=== PATIENT | male | born 1990 | race Caucasian/White ===

== ENCOUNTER 2017-08-17 20:32 | Inpatient (IN) | payer OTHER ==
[~2017-08-17] VITALS: Ht 182.8 cm; Wt 63.3 kg
[~2017-08-17 20:32] MED LIST: ATARAX,VISTARIL50 MG PO; DICYCLOMINE HCL20 MG PO; ONDANSETRON HYDR4 M1 PO; ROBAXIN750 MG PO; SINEMET 25-100M1 TAB PO
[2017-08-17 20:36] VITALS: BP 153/104
[2017-08-17 20:55] LABS: BASO % 0.2 % (0.0-1.0); EOS # 0.2 10*3/uL (0.0-0.4); EOS % 1.8 % (1.0-4.0); HEMATOCRIT 44.9 % (42.0-52.0); HEMOGLOBIN 15.3 g/dl (14.0-18.0); LYMPH # 1.8 10*3/uL (1.3-4.4); LYMPH % 21.1 % (27.0-41.0); MEAN CELL VOLUME 85.7 fl (80.0-94.0); MEAN CORPUSCULAR HGB 29.2 pg (27.0-31.0); MEAN CORPUSCULAR HGB CONC 34.1 g/dl (33.0-37.0); MEAN PLATELET VOLUME 9.8 fl (9.6-12.3); MONO # 0.7 10*3/uL (0.1-1.0); MONO % 8.5 % (3.0-9.0); NEUT # 5.7 10*3/uL (2.3-7.9); PLATELET COUNT AUTOMATED 203 10*3/uL (130-400); RED BLOOD COUNT 5.24 10*6/uL (4.50-5.90); RED CELL DISTRI WIDTH 12.4 % (0-14.5); WHITE BLOOD COUNT 8.4 10*3/uL (4.8-10.8)
[2017-08-17 21:11] LABS: ALBUMIN 3.9 gm/dl (3.1-4.5); ALKALINE PHOSPHATASE 143 U/L (45-117); BUN 13 mg/dl (7-24); CHLORIDE 99 mmol/L (98-107); CREATININE 1.01 mg/dL (0.70-1.30); SGOT/AST 34 IU/L (3-35); SGPT/ALT 59 U/L (12-78); SODIUM 138 mmol/L (136-145); TOTAL PROTEIN 8.1 gm/dL (6.4-8.2)
[2017-08-17 21:18] LABS: ACETAMINOPHEN (TYLENOL) < 2.0 ug/ml (10-30); ETHYL ALCOHOL < 3.0 mg/dl (<3)
[2017-08-17 21:27] LABS: BILIRUBIN 1+ (NEGATIVE); BLOOD NEGATIVE (NEGATIVE); CLARITY CLEAR (CLEAR); COLOR YELLOW (YELLOW); GLUCOSE NEGATIVE (NEGATIVE); KETONE TRACE (NEGATIVE); LEUKO ESTERASE NEGATIVE (NEGATIVE); NITRITE NEGATIVE (NEGATIVE); SPECIFIC GRAVITY 1.025 (1.005-1.030)
[2017-08-17 21:35] LABS: BACTERIA TRACE; EPITHELIAL CELLS 0-2; MUCOUS 2+
[2017-08-17 21:37] LABS: URINE AMPHETAMINES < 1000 (1000ng/ml); URINE BARBITURATES < 200 (200ng/ml); URINE BENZODIAZEPINES < 200 (200ng/ml); URINE CANNABINOIDS (THC) < 50 (50ng/ml); URINE COCAINE > 300 (300ng/ml); URINE METHADONE < 300 (300ng/ml); URINE OPIATES > 300 (300ng/ml)
[2017-08-17 21:38] LABS: URINE PHENCYCLIDINE < 25 (25ng/ml)
--- NOTE | 2017-08-17 21:49 | NUR ---
CALLED TO RECEIVE REPORT NURSE TO CALL BACK.
[2017-08-17 22:07] VITALS: BP 138/71
[2017-08-17 22:15] VITALS: BP 141/74
--- NOTE | 2017-08-17 22:15 | NUR ---
A 27, admitted to , under the services of CONTRERAS Richard DO with a diagnosis of ABDOMINAL CRAMPING, HEROIN ABUSE, ANXIETY. Chief complaint is SUBSTANCE ABUSE WITHDRAWAL. Patient arrived AMBULATORY from ER. Initial assessment completed. Vital signs taken and recorded. CONTRERAS RICHARD DO notified of admission to the unit. Orders received. See assessment for past medical history, medications and allergies. Patient and/or family oriented to unit. [facility] visitation policy reviewed. Clothing/patient valuable form completed. AMANDA SANDOVAL
[2017-08-17] MEDS ORDERED: GABAPENTIN800 MG PO (22:39)
--- NOTE | 2017-08-17 23:00 | NUR ---
PT C/O MUSCLE ACHES, BACK PAIN, ANXIETY, AND RESTLESS LEGS. ROBAXIN, IBUPROFEN, VISTARIL, AND REQUIP ADMINISTERED PO AT THIS TIME. PT REFUSING SUBUTEX AT THIS TIME. HE STATES HE IS AFRAID THAT HE WILL GO INTO WORSE WITHDRAWAL DUE TO HAVING TAKEN CARFENTANYL PRIOR TO ADMISSION. PT STATES THAT HE WAS TOLD BY ANOTHER HEALTH CARE FACILITY THAT HIS WITHDRAWAL SYMPTOMS WOULD WORSEN BY TAKING SUBUTEX. PT HAD BROUGHT HIS GABAPENTIN FROM HOME. MEDICATION COUNTED AND SENT TO PHARMACY FOR STORAGE. WILL MONITOR EFFECTIVENESS OF PRNS, CALL LIGHT IN REACH.
[2017-08-18] VITALS: BP 90/78
--- NOTE | 2017-08-18 | NUR ---
ROBAXIN, REQUIP, IBUPROFEN, AND VISTARIL EFFECTIVE PER PT. PT RESTING IN BED, CALL LIGHT IN REACH.
[2017-08-18] MEDS ORDERED: OMEPRAZOLE D/R20 MG PO (00:12)
--- NOTE | 2017-08-18 01:26 | NUR ---
24 HR chart check completed.
--- NOTE | 2017-08-18 02:12 | NUR ---
DR. RYAN MADE AWARE THAT PT REFUSED TO TAKE SUBUTEX. PHYSICIAN STATES THAT HE WILL LET DAYLIGHT STAFF AWARE. NO NEW ORDERS AT THIS TIME.
[2017-08-18 04:00] VITALS: BP 123/71
--- NOTE | 2017-08-18 05:18 | NUR ---
PT REFUSED SCHEDULED SUBUTEX AT THIS TIME. ATTEMPTS X 3 MADE, INEFFECTIVE. HE STATES THAT HE DOES NOT FEEL THAT HE NEEDS IT AND THAT THE PRN MEDICATIONS ARE TREATING HIS SYMPTOMS AT THIS TIME. NO S/S OF DISTRESS, LYING IN BED, CALL LIGHT IN REACH.
--- NOTE | 2017-08-18 07:50 | NUR ---
Shift chart check completed.
[2017-08-18 08:00] VITALS: BP 123/74
[2017-08-18] MEDS ORDERED: FLUOXETINE HCL20 M2 PO (09:28)
[2017-08-18] MEDS ORDERED: BUPRENORPHINE HY8 MG SL (09:29)
[2017-08-18] MEDS ORDERED: BUPRENORPHINE HY2 MG SL (09:31)
--- NOTE | 2017-08-18 09:33 | NUR ---
VERFIED HOME MEDICATIONS WITH PATIENTS PHARMACY. PHYSICIAN WAS NOTIFIED.
--- NOTE | 2017-08-18 10:23 | NUR ---
PRN ROBAXIN WAS GIVEN FOR MUSCLE ACHES AND SPASMS AND PRN VISTARIL WAS GIVEN FOR C/O ANXIETY, PATIENTS STATES THAT HE TAKES GABAPENTIN FOR ANXIETY. WILL MONITOR.
--- NOTE | 2017-08-18 11:12 | NUR ---
PRN SENNOKOT GIVEN PER PATIENT REQUEST FOR CONSTIPATION AND PRN MOTRIN GIVEN FOR C/O HEADACHES. WILL MONIOTOR.
--- NOTE | 2017-08-18 11:15 | NUR ---
PRN ROBAXIN EFFECTIVE, PATIENT HAS NO C/O MUSCLE SPASMS, VISTARIL IS EFFECTIVE, PATIENT IS NO AGITATED OR ANXIOUS. MOTRIN EFFECTIVE FOR PATIENTS HEADACHE, SAID PAIN HAS RESOLVED.
[2017-08-18 12:00] VITALS: BP 125/63
--- NOTE | 2017-08-18 14:25 | NUR ---
PRN REQUIP GIVEN FOR WRESTLESS LEGS, CATAPRESS GIVEN FOR C/O SWEATS AND ANXIETY.WILL MONITOR.
--- NOTE | 2017-08-18 14:27 | NUR ---
PRN ZOFRAN GIVEN FOR C/O OF NAUSEA. WILL MONITOR PATIENTS RESPONSE.
--- NOTE | 2017-08-18 15:15 | NUR ---
PRN ZOFRAN EFFECTIVE. PATIENT HAS NO C/O OF NAUSEA OR VOMITING. REQUIP EFFECTIVE, NO C/O OF WRESTLESS LEGS OR SPASMS, AND CATAPRESS EFFECTIVE. PATIENT STATES HE IS "FINE." NO SIGNS OR SYMPTOMS OF ANXIETY, WRESTLESSNESS, DIAPHORISIS. PATIENT RESTING COMFORTABLY AND ALL NEEDS ARE MET.
[2017-08-18 16:00] VITALS: BP 129/61
--- NOTE | 2017-08-18 16:56 | NUR ---
PRN SENOKOT NOT EFFECTIVE AT THIS TIME, WILL MONITOR.
[2017-08-18 20:00] VITALS: BP 113/76
--- NOTE | 2017-08-18 20:21 | NUR ---
PATIENT IS SITTING UP IN BED. PATIENT DENIES ANY S&S OF DT AT THIS TIME. PATIENT LEGS ARE FEELING SLIGHTLY RESTLESS, BUT DIDN'T REQUEST MEDICATIONS AT THIS TIME. PATIENT WAS PLEASANT AND COOPERATIVE UPON ASSESSMENT. CALL LIGHT IS WITHIN REACH.
--- NOTE | 2017-08-18 21:15 | NUR ---
PATIENT WAS GIVEN CATAPRES, ROBAXIN AND TRAZODONE PER PATIENT REQUEST FOR RESTLESSNESS. WILL CONTINUE TO MONITOR AND REASSESS PATIENT
[2017-08-19] VITALS: BP 116/72
--- NOTE | 2017-08-19 00:55 | NUR ---
PATIENT IS RESTING COMFORTABLY IN BED. TRAZODONE PER PT REQUEST HAS BEEN EFFECTIVE AND PATIENT HAS NO FURTHER REQUESTS AT THIS TIME. PT WAS NOTIFIED THAT FAMILY MEMBER HAS CALLED AND PLANS TO COME VISIT IN THE MORNING. CALL LIGHT IS WITHIN REACH. SEE SHIFT ASSESSMENT.
[2017-08-19 01:25] VITALS: BP 153/70
--- NOTE | 2017-08-19 05:50 | NUR ---
PATIENT IS RESTING IN BED. PT REPORTS BEIN ABLE TO SLEEP THROUGHOUT THE NIGHT WITHOUT ANY COMPLICATIONS. PATIENT DENIES ANY PAIN AT THIS TIME BUT DOES HAVE DISCOMFORT IN THEIR LEGS. PATIENT WAS GIVEN ROBAXIN AND REQUIP FOR RESTLESSNESS. WILL CONTINUE TO MONITOR AND REASSESS.
--- NOTE | 2017-08-19 06:25 | NUR ---
PATIENT VERBALIZES THAT MEDICATIONS HAVE BEEN EFFECTIVE AND THAT THE DISCOMFORT HAS SUBSIDED, WILL CONTINUE TO MONITOR PATIENT. PATIENT HAS NO FURTHER REQUESTS AT THIS TIME.
--- NOTE | 2017-08-19 07:50 | NUR ---
Shift chart check completed.
[2017-08-19 08:00] VITALS: BP 114/70
[2017-08-19 12:00] VITALS: BP 120/68
--- NOTE | 2017-08-19 13:00 | NUR ---
PRN ROBAXIN WAS GIVEN FOR PATIENT C/O MUSCLE SPAMS AND PRN SENNOKOT WAS GIVEN FOR C/O CONSTIPATION. WILL MONITOR.
--- NOTE | 2017-08-19 13:05 | NUR ---
PRN VISTARIL WAS GIVEN FOR PATIENT C/O ANXIETY AND PRN ZOFRAN WAS GIVEN FOR C/O NAUSEA. WILL MONITOR.
--- NOTE | 2017-08-19 14:00 | NUR ---
PRN ROBAXIN EFFECTIVE, NO C/O MUSCLE SPASMS, PRN SENNOKOT EFFECTIVE, PATIENT HAD REGULAR BOWEL MOVEMENT, PRN VISTARIL WAS EFFECTIVE FOR ANXIETY, AND PRN ZOFRAN WAS EFFECTIVE FOR PATIENTS C/O NAUSEA AND UPSET STOMACH. PATIENT IS COMFORTABLE AND SATISFIED.
--- NOTE | 2017-08-19 15:45 | NUR ---
PATIENTS GRANDMOTHER WAS IN TO VISIT PORFIRIO THIS AFTERNOON AND STATED THAT SHE IS CONCERNED THAT HER GRANDSON IS DEPRESSED. SHE IS MOST CONCERNED BECAUSE HE STATED TO HER "I HAVE NOTHING TO LIVE FOR." SHE IS CONCERNED ON HOW TO HANDLE THE SITUATION BECAUSE SHE DOES NOT WANT HIM TO GET UPSET WITH HER AND THINK HE CAN NO LONGER TRUST HER. PATIENT RESIDES IN HIS GRANDPARENTS HOUSE. WILL FOLLOW UP WITH PATIENT.
[2017-08-19 16:00] VITALS: BP 101/71
--- NOTE | 2017-08-19 16:47 | NUR ---
SPOKE WITH PORFIRIO ABOUT HIS GRANDMOTHERS CONCERN OF "HAVING NOTHING TO LIVE FOR." I ASKED HIM IF HE HAS ANY THOUGHTS ABOUT HURTING HIMSELF AND HE SAID "NO." "I DID YEARS AGO THE FIRST TIME I DETOXED, BUT NOT NOW." "I FEEL DEPRESSED, BUT I'M NOT THINKING ABOUT HURTING MYSELF." PHYSICIAN NOTIFIED AND STAFF IS TO CONTINUALLY ASSESS FOR SUICIDAL IDEATION, IF SO THE PATIENT WOULD HAVE TO BE PINK SLIPPED. WILL PASS IT ON DURING NURSING REPORT AND SUPERVISORS.
[2017-08-19 20:00] VITALS: BP 122/53
[2017-08-20] VITALS: BP 123/76
--- NOTE | 2017-08-20 04:08 | NUR ---
Medications received earlier effective to decrease withdrawal symptoms and allow to rest quietly. Denied any thoughts of suicide earlier. Resp easy and regular. Will continue to closely monitor.
--- NOTE | 2017-08-20 06:17 | NUR ---
Refused morning labs. Dr. Saba aware.
--- NOTE | 2017-08-20 06:40 | NUR ---
Denies any thoughts of suicide or harming self. States, I feel okay, just cold and would like to sleep longer. Will continue to closely monitor.
[2017-08-20 08:00] VITALS: BP 136/80
--- NOTE | 2017-08-20 09:20 | NUR ---
Patient reports the following symptoms of withdrawal: body aches, restlessness, & anxiety. Patient given scheduled/PRN medication to control withdrawal symptoms. Close observation will be maintained.
--- NOTE | 2017-08-20 10:15 | NUR ---
PATIENT STATES THAT REQUIP AND ROBAXIN WERE EFFECTIVE.
[2017-08-20 12:00] VITALS: BP 144/86
[2017-08-20] MEDS ORDERED: ZOFRAN 4 MG ED2 TAB PO (14:06)
[2017-08-20] MEDS ORDERED: METHOCARBAMOL750 M1 PO (14:06)
[2017-08-20] MEDS ORDERED: ATARAX,VISTARIL50 MG PO (14:06)
[2017-08-20] MEDS ORDERED: ROPINIROLE HYD0.5 MG PO (14:06)
--- NOTE | 2017-08-20 15:13 | NUR ---
Discharge instructions reviewed with patient/family. Patient receptive and verbalizes understanding. Follow-up care arranged,patient stated he will find a family physician and follow up for continued care and management of antidepression medications. Patient will also continue with counseling treatment for drug addiction. Written instructions given to patient. Patient ambulated off unit and left with his grandparents. BRYCE MENDEZ
== END 2017-08-20 15:13 | disposition home or self-care (01) | DRG 897 ==
LOC: ED 20:32 → 5E 21:27 → EDHOLD 21:27 → 5E 21:39
PROVIDERS: Student in an Organized Health Care Education/Training Program; ADMIT Internal Medicine
DX: F11.23 Opioid dependence with withdrawal (principal); F33.9 Major depressive disorder, recurrent, unspecified; E66.3 Overweight; R03.0 Elevated blood-pressure reading, without diagnosis of hypertension; M54.5 Low back pain; G25.81 Restless legs syndrome; F41.1 Generalized anxiety disorder; F14.10 Cocaine abuse, uncomplicated; Z53.29 Procedure and treatment not carried out because of patient's decision for other reasons; Z87.891 Personal history of nicotine dependence; Z79.899 Other long term (current) drug therapy; Z84.89 Family history of other specified conditions; Z68.26 Body mass index [BMI] 26.0-26.9, adult

== ENCOUNTER 2017-08-23 19:16 | Inpatient (IN) | payer OTHER ==
[~2017-08-23] VITALS: Ht 193 cm; Wt 97.0 kg
--- NOTE | ~2017-08-23 | CON ---
[place], [place] REPORT OF CONSULTATION [id number] #[facility] [id number] ROOM: 515 DOCTOR: ABELARDO ALVAREZ ED.D (VANIA) BIRTHDATE: [birth year] DOS: 08/24/2017 HISTORY OF PRESENT ILLNESS: The patient is a 27-year-old male referred by the hospitalist for evaluation after there was some suspicion that he may be suicidal. At the present time, he is involved in the [facility] here at [facility] and is on the 5th floor. The patient states he is single and has no children. 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 He does not have a family physician. PAST MEDICAL HISTORY: Pertinent for heroin addiction and cocaine abuse. He denies any alcohol consumption whatsoever. In addition to his addiction, he does have a history of depression and GERD. MEDICATIONS: Include fluoxetine, gabapentin, Atarax, omeprazole and Zofran. This patient states his drug of choice is heroin. He denies any suicidal ideation or plan at this time. He states he is depressed because of the fact he recently relapsed, but he states he is not going to do anything to harm himself. He does not appear to be having any active hallucinations or delusional thoughts. His insight, judgment and concentration are fair. DIAGNOSES: 1. Heroin addiction. 2. Major depressive disorder. RECOMMENDATIONS: 1. The patient should follow up outpatient at drug and alcohol rehabilitation once he is discharged from the hospital. 2. The patient denies any suicidal ideation or plan, so no further psychological intervention is needed at this time. Thank you very much for this consult. ABELARDO ALVAREZ ED.D CM:CONSTR:REPORT OF CONSULTATION [id number] 08/25/17 0601 interface
[~2017-08-23 19:16] MED LIST changes: +BUPRENORPHINE HY2 MG SL; +BUPRENORPHINE HY8 MG SL; +FLUOXETINE HCL20 M2 PO; +GABAPENTIN800 MG PO; +METHOCARBAMOL750 M1 PO; +OMEPRAZOLE D/R20 MG PO; +ROPINIROLE HYD0.5 MG PO; +ZOFRAN 4 MG ED2 TAB PO
[2017-08-23 19:27] VITALS: BP 140/86
[2017-08-23 20:00] VITALS: BP 135/73
[2017-08-23 20:03] LABS: BASO % 0.2 % (0.0-1.0); EOS # 0.1 10*3/uL (0.0-0.4); EOS % 1.1 % (1.0-4.0); HEMATOCRIT 45.3 % (42.0-52.0); HEMOGLOBIN 15.4 g/dl (14.0-18.0); LYMPH # 2.2 10*3/uL (1.3-4.4); LYMPH % 23.2 % (27.0-41.0); MEAN CELL VOLUME 85.2 fl (80.0-94.0); MEAN CORPUSCULAR HGB 28.9 pg (27.0-31.0); MEAN PLATELET VOLUME 9.9 fl (9.6-12.3); MONO # 0.6 10*3/uL (0.1-1.0); MONO % 6.2 % (3.0-9.0); NEUT # 6.6 10*3/uL (2.3-7.9); NEUT % 68.9 % (47.0-73.0); PLATELET COUNT AUTOMATED 267 10*3/uL (130-400); RED BLOOD COUNT 5.32 10*6/uL (4.50-5.90); RED CELL DISTRI WIDTH 12.2 % (0-14.5); WHITE BLOOD COUNT 9.7 10*3/uL (4.8-10.8)
[2017-08-23 20:06] VITALS: BP 108/66
[2017-08-23 20:07] LABS: URINE AMPHETAMINES < 1000 (1000ng/ml); URINE BARBITURATES < 200 (200ng/ml); URINE BENZODIAZEPINES < 200 (200ng/ml); URINE CANNABINOIDS (THC) < 50 (50ng/ml); URINE COCAINE > 300 (300ng/ml); URINE METHADONE < 300 (300ng/ml); URINE OPIATES > 300 (300ng/ml)
[2017-08-23 20:08] LABS: URINE PHENCYCLIDINE < 25 (25ng/ml)
[2017-08-23 20:19] LABS: ALBUMIN 4.1 gm/dl (3.1-4.5); ALKALINE PHOSPHATASE 160 U/L (45-117); BUN 13 mg/dl (7-24); CHLORIDE 101 mmol/L (98-107); CREATININE 1.12 mg/dL (0.70-1.30); POTASSIUM 3.7 mmol/L (3.5-5.1); SGOT/AST 60 IU/L (3-35); SGPT/ALT 149 U/L (12-78); SODIUM 137 mmol/L (136-145); TOTAL PROTEIN 8.5 gm/dL (6.4-8.2)
[2017-08-23 20:23] LABS: ACETAMINOPHEN (TYLENOL) < 2.0 ug/ml (10-30); ETHYL ALCOHOL < 3.0 mg/dl (<3)
[2017-08-23 20:30] VITALS: BP 135/73
--- NOTE | 2017-08-23 20:30 | NUR ---
Time: 2029 A 27 year old MALE admitted to 5E under services of CONTRERAS RICHARD DO. Pt. arrived via wheel chair from ER. Chief complaint: [facility] VISION FOR HEROIN WITHDRAWAL. LICO GUARDADO
--- NOTE | 2017-08-23 20:53 | NUR ---
Called and notified Dr. Juan Ziegler regarding patient admitted to floor and that the medication reconciliation was updated and verifed with the patient. Patient knew his medication,the dosages and why he was taking them.
--- NOTE | 2017-08-23 23:07 | NUR ---
Medicated with Trazodone po prn for help with sleep. Will monitor effectiveness. Call light within reach.
[2017-08-24] VITALS: BP 120/81
--- NOTE | 2017-08-24 | NUR ---
Patient resting quietly in bed with eyes closed. Trazodone effective. Will continue to monitor. Call light within reach.
--- NOTE | 2017-08-24 00:57 | NUR ---
24 HR chart check completed.
[2017-08-24 04:00] VITALS: BP 130/65
[2017-08-24 07:33] LABS: ALBUMIN 3.3 gm/dl (3.1-4.5); BUN 13 mg/dl (7-24); CHLORIDE 100 mmol/L (98-107); POTASSIUM 3.5 mmol/L (3.5-5.1); SODIUM 140 mmol/L (136-145)
[2017-08-24 07:36] LABS: ALKALINE PHOSPHATASE 131 U/L (45-117); CREATININE 0.92 mg/dL (0.70-1.30); SGOT/AST 48 IU/L (3-35); SGPT/ALT 118 U/L (12-78)
[2017-08-24 08:00] VITALS: BP 111/71
--- NOTE | 2017-08-24 08:02 | NUR ---
PATIENT MEDICATED WITH VISTARIL, REQUIP, MOTRIN, AND NICODERM PATCH FOR COMPLAINTS OF AGITATION, RESTLESS LEGS, MUSCLE ACHES, HEADACHE, AND NICOTINE WITHDRAWAL. WILL MONITOR FOR EFFECTIVENESS.
--- NOTE | 2017-08-24 09:15 | NUR ---
PATIENT STATES THAT PRN MEDICATION WAS EFFECTIVE. NO FURTHER COMPLAINTS AT THIS TIME.
--- NOTE | 2017-08-24 11:28 | NUR ---
D/C PLANNING: PATIENT IS INTERESTED IN GETTING THE VIVITROL SHOT OR SUBOXONE. [facility] IN [place] WAS DISCUSSED AN OPTIONS FOR OUTPATIENT TREATMENT. LEAD ELECTRICAL ENGINEER WILL FOLLOW UP WITH PATIENT TO DISCUSS PLAN FURTHER. KALEY HICKMAN B.A. LEAD ELECTRICAL ENGINEER
[2017-08-24 12:00] VITALS: BP 125/73
[2017-08-24 16:00] VITALS: BP 129/69
--- NOTE | 2017-08-24 16:42 | NUR ---
PATIENT MEDICATED AT THIS TIME WITH VISTARIL UPON REQUEST FOR COMPLAINTS OF ANXIETY. WILL MONITOR FOR EFFECTIVENESS.
--- NOTE | 2017-08-24 18:00 | NUR ---
PER PATIENT, MEDICATION HAS BEEN EFFECTIVE. NO FURTHER COMPLAINTS.
[2017-08-24 20:00] VITALS: BP 133/72
--- NOTE | 2017-08-24 23:15 | NUR ---
Medicated with Trazodone po prn for help with sleep and Vistaril po prn for anxiety. Will monitor effectiveness. Call light within reach.
[2017-08-25] VITALS: BP 130/86
--- NOTE | 2017-08-25 00:22 | NUR ---
Patient resting quietly in bed with eyes closed. Trasodone and Vistaril effective. Will continue to monitor. Call light within reach.
--- NOTE | 2017-08-25 00:22 | NUR ---
24 HR chart check completed.
[2017-08-25 07:05] LABS: HEPATITIS B SURFACE AG Negative (Negative)
[2017-08-25 08:00] VITALS: BP 128/58
[2017-08-25 08:01] LABS: HEPATITIS C VIRUS ANTIBODY 5.2 s/co (0.0-0.9)
--- NOTE | 2017-08-25 08:03 | NUR ---
MESSAGED RECIEVED FROM THE LAB. POS HEP C ANTIBODY. DR. SANCHEZ WAS CALLED AND NOTIFIED. THE DR WAS ALSO TOLD THAT THE PT HAS BEEN REFUSING SUBUTEX AND WAS PUT ON A LIBRIUM TAPER, SO SUBUTEX WAS ASKED TO BE DC. NO OTHER CONCERNS.
[2017-08-25 12:00] VITALS: BP 134/71
[2017-08-25 16:00] VITALS: BP 102/67
--- NOTE | 2017-08-25 16:22 | NUR ---
REFERRALS WERE MADE TO PATIENT. PATIENT REQUESTED A LIST OF SUBOXONE CLINICS IN HIS AREA TO CHOOSE FROM. KALEY HICKMAN B.A. FRUIT OR NUT CROPS FARM MANAGER
--- NOTE | 2017-08-25 19:36 | NUR ---
24 HR chart check completed.
[2017-08-25 20:00] VITALS: BP 136/90
--- NOTE | 2017-08-25 20:09 | NUR ---
C/O 01/30 TOOTHACHE. MEDICATED WITH PRN MOTRIN ORDERED AND PER PATIENT REQUEST.
--- NOTE | 2017-08-25 20:58 | NUR ---
DENIES PAIN. MOTRIN EFFECTIVE.
--- NOTE | 2017-08-25 21:13 | NUR ---
SCHEDULED LIBRIUM GIVEN. C/O INSOMNIA AND RESTLESS LEGS. MEDICATED WITH PRN TRAZADONE AND REQUIP ORDERED AND PER PATIENT REQUEST.
--- NOTE | 2017-08-25 22:11 | NUR ---
PATIENT ASLEEP. NO SIGNS OF INSOMNIA, RESTLESS LEGS OR WITHDRAWAL. LIBRIUM, TRAZADONE AND REQUIP EFFECTIVE.
[2017-08-26] VITALS: BP 144/67
--- NOTE | 2017-08-26 01:16 | NUR ---
PT RESTING IN BED, AROUSES EASILY. RESPIRATIONS EASY AND UNLABORED. NO S/S OF DISTRESS, NO NEW ABNORMALITIES NOTED. ALL VITALS WNL. ALL SAFETY MEASURES IN PLACE. CALL LIGHT IN REACH.
--- NOTE | 2017-08-26 06:15 | NUR ---
MORNING MEDICATION TAKEN WITH EASE. NO S/S OF DISTRESS. RESPIRATIONS EASY AND UNLABORED. PT RESTING IN BED, ALL SAFETY MEASURES IN PLACE. CALL LIGHT IN REACH.
[2017-08-26 08:00] VITALS: BP 116/64
[2017-08-26] MEDS ORDERED: ATARAX,VISTARIL50 MG PO (15:01)
--- NOTE | 2017-08-26 15:45 | NUR ---
Discharge instructions reviewed with patient/family. Patient receptive and verbalizes understanding. Follow-up care arranged. Written instructions given to patient/family. RAHEEL HODGE
[2017-08-26 16:00] VITALS: BP 108/72
== END 2017-08-26 16:21 | disposition home or self-care (01) | DRG 897 ==
LOC: ED 19:16 → 5E 19:52 → EDHOLD 19:52 → 5E 20:05
PROVIDERS: Internal Medicine; Physician Assistant; ADMIT Internal Medicine
DX: F11.23 Opioid dependence with withdrawal (principal); F33.9 Major depressive disorder, recurrent, unspecified; E66.3 Overweight; G25.81 Restless legs syndrome; R74.0 Nonspecific elevation of levels of transaminase and lactic acid dehydrogenase [LDH]; K21.9 Gastro-esophageal reflux disease without esophagitis; R10.84 Generalized abdominal pain; F14.10 Cocaine abuse, uncomplicated; F41.1 Generalized anxiety disorder; F17.200 Nicotine dependence, unspecified, uncomplicated; R76.8 Other specified abnormal immunological findings in serum; Z79.899 Other long term (current) drug therapy; Z82.69 Family history of other diseases of the musculoskeletal system and connective tissue; Z68.25 Body mass index [BMI] 25.0-25.9, adult

== ENCOUNTER 2017-11-28 12:33 | Inpatient (IN) | payer OTHER ==
[~2017-11-28] VITALS: Ht 193 cm; Wt 94.0 kg
[2017-11-28 14:10] VITALS: BP 126/73
[2017-11-28] MEDS ORDERED: TRAZODONE150 MG PO (14:37)
[2017-11-28 15:26] LABS: INTERNATIONAL NORM RATIO 1.1 (2.0-3.5)
[2017-11-28 15:29] LABS: BASO % 0.3 % (0.0-1.0); EOS # 0.1 10*3/uL (0.0-0.4); EOS % 0.6 % (1.0-4.0); HEMATOCRIT 42.7 % (42.0-52.0); HEMOGLOBIN 14.5 g/dl (14.0-18.0); LYMPH # 2.1 10*3/uL (1.3-4.4); LYMPH % 26.5 % (27.0-41.0); MEAN CELL VOLUME 84.2 fl (80.0-94.0); MEAN CORPUSCULAR HGB 28.6 pg (27.0-31.0); MEAN PLATELET VOLUME 10.3 fl (9.6-12.3); MONO # 0.5 10*3/uL (0.1-1.0); MONO % 6.9 % (3.0-9.0); NEUT # 5.1 10*3/uL (2.3-7.9); NEUT % 65.3 % (47.0-73.0); PLATELET COUNT AUTOMATED 276 10*3/uL (130-400); RED BLOOD COUNT 5.07 10*6/uL (4.50-5.90); RED CELL DISTRI WIDTH 12.8 % (0-14.5); WHITE BLOOD COUNT 7.8 10*3/uL (4.8-10.8)
[2017-11-28 15:32] LABS: ALBUMIN 4.4 gm/dl (3.1-4.5); ALKALINE PHOSPHATASE 124 U/L (45-117); BUN 17 mg/dl (7-24); CHLORIDE 97 mmol/L (98-107); CREATININE 1.16 mg/dL (0.70-1.30); POTASSIUM 3.5 mmol/L (3.5-5.1); SGOT/AST 12 IU/L (3-35); SGPT/ALT 18 U/L (12-78); SODIUM 136 mmol/L (136-145); TOTAL PROTEIN 8.5 gm/dL (6.4-8.2)
[2017-11-28 15:33] LABS: ETHYL ALCOHOL < 3.0 mg/dl (<3)
[2017-11-28 16:00] VITALS: BP 128/86
[2017-11-28 16:32] LABS: URINE AMPHETAMINES < 1000 (1000ng/ml); URINE BARBITURATES < 200 (200ng/ml); URINE BENZODIAZEPINES < 200 (200ng/ml); URINE CANNABINOIDS (THC) < 50 (50ng/ml); URINE COCAINE > 300 (300ng/ml); URINE METHADONE < 300 (300ng/ml); URINE OPIATES > 300 (300ng/ml)
[2017-11-28 16:40] LABS: URINE PHENCYCLIDINE < 25 (25ng/ml)
[2017-11-28 16:49] LABS: BILIRUBIN 1+ (NEGATIVE); BLOOD NEGATIVE (NEGATIVE); CLARITY SL CLOUDY (CLEAR); COLOR YELLOW (YELLOW); GLUCOSE NEGATIVE (NEGATIVE); KETONE TRACE (NEGATIVE); LEUKO ESTERASE NEGATIVE (NEGATIVE); NITRITE NEGATIVE (NEGATIVE); SPECIFIC GRAVITY 1.025 (1.005-1.030); UROBILINOGEN 0.2 E.U./dl (0.2-1.0)
[2017-11-28 17:09] LABS: MUCOUS 2+; WBC 0-2 wbc/hpf (0-5)
[2017-11-28 20:00] VITALS: BP 128/86
[2017-11-29] VITALS: BP 112/67
[2017-11-29 08:00] VITALS: BP 138/79
[2017-11-29 12:00] VITALS: BP 132/59
[2017-11-29 16:00] VITALS: BP 129/61; BP 136/73
[2017-11-29 20:00] VITALS: BP 121/83
[2017-11-30] VITALS: BP 110/82
[2017-11-30 08:00] VITALS: BP 106/70
[2017-11-30 16:00] VITALS: BP 142/86
[2017-11-30 20:00] VITALS: BP 136/77
[2017-12-01] VITALS: BP 122/65
[2017-12-01 08:00] VITALS: BP 114/83
[2017-12-01 08:45] LABS: HEMATOCRIT 45.4 % (42.0-52.0); HEMOGLOBIN 15.4 g/dl (14.0-18.0); MEAN CELL VOLUME 84.9 fl (80.0-94.0); MEAN CORPUSCULAR HGB 28.8 pg (27.0-31.0); MEAN CORPUSCULAR HGB CONC 33.9 g/dl (33.0-37.0); MEAN PLATELET VOLUME 10.5 fl (9.6-12.3); PLATELET COUNT AUTOMATED 304 10*3/uL (130-400); RED BLOOD COUNT 5.35 10*6/uL (4.50-5.90); RED CELL DISTRI WIDTH 13.1 % (0-14.5); WHITE BLOOD COUNT 12.2 10*3/uL (4.8-10.8)
[2017-12-01 09:21] LABS: ATYPICAL LYMPHS 3 % (0-0); PLATELET SUFFICIENCY NORMAL (NORMAL); TOTAL CELLS COUNTED 100 #CELLS
[2017-12-01] MEDS ORDERED: ROPINIROLE HYD0.5 MG PO (09:28)
[2017-12-01] MEDS ORDERED: ATARAX,VISTARIL50 MG PO (09:28)
[2017-12-01] MEDS ORDERED: TRAZODONE50 MG PO (09:28)
[2017-12-01] MEDS ORDERED: PHENERGAN25 M3 PO (09:28)
== END 2017-12-01 12:20 | disposition home or self-care (01) | DRG 897 ==
LOC: 4E 12:33
PROVIDERS: Family Medicine; Internal Medicine
DX: F11.23 Opioid dependence with withdrawal (principal); F33.9 Major depressive disorder, recurrent, unspecified; B18.2 Chronic viral hepatitis C; F14.10 Cocaine abuse, uncomplicated; K21.9 Gastro-esophageal reflux disease without esophagitis; E66.3 Overweight; R10.84 Generalized abdominal pain; F41.1 Generalized anxiety disorder; F17.210 Nicotine dependence, cigarettes, uncomplicated; G25.81 Restless legs syndrome; Z68.25 Body mass index [BMI] 25.0-25.9, adult; Z71.6 Tobacco abuse counseling; Z83.2 Family history of diseases of the blood and blood-forming organs and certain disorders involving the immune mechanism; Z79.899 Other long term (current) drug therapy